=== PATIENT | female | born 1930 | race Caucasian/White ===

== ENCOUNTER → 2017-09-24 | Outpatient (REF) ==
[2017-09-24 09:06] LABS: INR 2.33; PROTHROMBIN TIME 26.5 SECONDS (12.4-14.5)
== END ==
LOC: SKLAB7 07:00
DX: I48.91 Unspecified atrial fibrillation (principal)

== ENCOUNTER → 2017-09-25 | Outpatient (REF) ==
[2017-09-25 08:10] LABS: ANION GAP 7 MEQ/L (8-16); BLOOD UREA NITROGEN 16 MG/DL (7-18); CALCIUM LEVEL 7.6 MG/DL (8.8-10.2); CARBON DIOXIDE LEVEL 30 MEQ/L (21-32); CHLORIDE LEVEL 103 MEQ/L (98-107); CREATININE FOR GFR 1.01 MG/DL (0.55-1.30); GLOMERULAR FILTRATION RATE 54.9 (>32); GLUCOSE, FASTING 94 MG/DL (70-100); NT-PRO BNP 1886 PG/ML (<450); POTASSIUM SERUM 3.7 MEQ/L (3.5-5.1); SODIUM LEVEL 140 MEQ/L (136-145)
== END ==
LOC: SKLAB7 08:31
DX: R60.9 Edema, unspecified (principal)

== ENCOUNTER → 2017-09-26 | Outpatient (REF) ==
[2017-09-26 08:08] LABS: INR 2.94
== END ==
LOC: SKLAB7 07:12
DX: Z79.01 Long term (current) use of anticoagulants (principal); I48.91 Unspecified atrial fibrillation

== ENCOUNTER → 2017-10-03 | Outpatient (REF) | payer MEDICARE ==
[2017-10-03 08:10] LABS: INR 2.45; PROTHROMBIN TIME 27.6 SECONDS (12.4-14.5)
== END ==
LOC: SKLAB7 07:00
DX: I48.91 Unspecified atrial fibrillation (principal)
CPT/HCPCS: 36415

== ENCOUNTER → 2017-10-10 | Outpatient (REF) ==
[2017-10-10 08:27] LABS: INR 2.25; PROTHROMBIN TIME 25.7 SECONDS (12.4-14.5)
== END ==
LOC: SKLAB7 07:00
DX: I48.91 Unspecified atrial fibrillation (principal)